=== PATIENT | male | born 1970 | race Caucasian/White ===

== ENCOUNTER 2016-10-27 09:38 | Emergency (ER) | payer SELFPAY ==
[2016-10-27 09:53] VITALS: BP 133/85
--- NOTE | 2016-10-27 10:40 | UC ---
Respiratory Complaint HPI - HPI Summary HPI Summary: Cough x 2-3 weeks, lots of yellow sputum, has been working every day, woke up with "swollen glands in throat" today, denies ST. Denies wheezing or trouble breathing, reports intermittent fevers, claims he can feel them coming on but doesn't always measure them. Had some fevers over 101, thinks last one was a week ago. Had "walking pneumonia" a few years ago and is very concerned about this. - History of Current Complaint Chief Complaint: UCRespiratory Stated Complaint: sore throat, and cough Time Seen by Provider: 10/27/16 10:29 Hx Obtained From: Patient Onset/Duration: Gradual Onset, Lasting Weeks Timing: Constant Severity Initially: Mild Severity Currently: Mild Character: Cough: Productive Aggravating Factors: Deep Breaths, Recumbent Position Alleviating Factors: Upright Position Associated Signs And Symptoms: Positive: Fever, Chills, Nasal Congestion - Allergies/Home Medications Allergies/Adverse Reactions: Allergies Allergy/AdvReac Type Severity Reaction Status Date / Time No Known Allergies Allergy Verified 10/25/13 13:38 PMH/Surg Hx/FS Hx/Imm Hx Endocrine History Of: Denies: Diabetes, Thyroid Disease Cardiovascular History Of: Denies: Cardiac Disorders, Hypertension Respiratory History Of: Denies: COPD, Asthma GI/ History Of: Denies: Ulcer - Surgical History Surgical History: None - Family History Known Family History: Positive: Other - alcoholism - Social History Occupation: Employed Full-time Alcohol Use: None Alcohol Amount: Hx of alc abuse, 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 Substance Use Type: None Smoking Status (MU): Heavy Every Day Tobacco Smoker Type: Cigarettes Amount Used/How Often: smoked cigarettes since he is 17 Length of Time of Smoking/Using Tobacco: 1 PPD - Immunization History Most Recent Influenza Vaccination: never Most Recent Tetanus Shot: UTD Review of Systems Constitutional: Fever, Chills, Fatigue Skin: Negative Eyes: Negative ENT: Other - "swollen glands" Respiratory: Cough Cardiovascular: Negative Gastrointestinal: Negative Genitourinary: Negative Motor: Negative Neurovascular: Negative Musculoskeletal: Negative Neurological: Negative Psychological: Negative All Other Systems Reviewed And Are Negative: Yes Physical Exam Triage Information Reviewed: Yes Appearance: Well-Appearing, No Pain Distress, Well-Nourished Vital Signs: Initial Vital Signs Temp 97.9 F 10/27/16 09:49 Pulse 75 10/27/16 09:49 Resp 18 10/27/16 09:49 BP 133/85 10/27/16 09:49 Pulse Ox 97 10/27/16 09:49 Vital Signs Reviewed: Yes Eye Exam: Normal Eyes: Positive: Conjunctiva Clear ENT: Positive: Hearing grossly normal, Pharyngeal erythema - mild, Nasal congestion, TMs normal. Negative: Nasal drainage, Tonsillar swelling, Tonsillar exudate Neck: Positive: Supple, Nontender, Enlarged Nodes @ - very slightly enlarged tonsillar nodes Respiratory Exam: Normal Respiratory: Positive: Chest non-tender, Lungs clear, Normal breath sounds, No respiratory distress, No accessory muscle use Cardiovascular Exam: Normal Cardiovascular: Positive: RRR, No Murmur Musculoskeletal Exam: Normal Neurological Exam: Normal Psychological Exam: Normal Skin Exam: Normal UC Diagnostic Evaluation - Laboratory O2 Sat by Pulse Oximetry: 97 Respiratory Course/Dx - Differential Dx/Diagnosis Provider Diagnoses: URI, likely viral. Elevated blood pressure secondary to discomfort Discharge - Discharge Plan Condition: Stable Disposition: HOME Prescriptions: Albuterol HFA INHALER* [Ventolin HFA Inhaler*] 1 - 2 puff INH Q4H PRN #1 mdi PRN Reason: wheeze, cough Benzonatate CAP* [Tessalon CAP*] 100 mg PO TID PRN #30 cap PRN Reason: Cough Patient Education Materials: Upper Respiratory Infection (ED) Referrals: No Primary Care Phys,NOPCP [Primary Care Provider] - Additional Instructions: Call or return if you develop increasing fever, shortness of breath, chest pain , bloody sputum, or otherwise worsen. If you have not improved at all after several days, contact your primary care physician or return here.
--- NOTE | 2016-10-27 11:02 | RAD ---
HISTORY: Cough, fever COMPARISONS: October 25, 2013 VIEWS: 2: Frontal dual-energy and lateral views of the chest. FINDINGS: CARDIOMEDIASTINAL SILHOUETTE: The cardiomediastinal silhouette is normal. ASIA: The asia are normal. PLEURA: The costophrenic angles are sharp. No pleural abnormalities are noted. LUNG PARENCHYMA: There is hyperinflation with flattening of the diaphragm and expansion of the AP diameter of the chest. ABDOMEN: The upper abdomen is clear. There is no subphrenic gas. BONES AND SOFT TISSUES: No bone or soft tissue abnormalities are noted. OTHER: None. IMPRESSION: HYPERINFLATION, CONSISTENT WITH COPD. NO ACTIVE CARDIOPULMONARY DISEASE.
== END 2016-10-27 11:19 | disposition home or self-care (01) ==
LOC: UCEAST 09:38
DX: J06.9 Acute upper respiratory infection, unspecified (principal); R03.0 Elevated blood-pressure reading, without diagnosis of hypertension; F17.210 Nicotine dependence, cigarettes, uncomplicated
CPT/HCPCS: 71020; 87651; 99212; G0463

== ENCOUNTER 2016-11-01 10:10 | Emergency (ER) | payer MEDICAID ==
--- NOTE | 2016-11-01 10:28 | UC ---
Throat Pain/Nasal [place] HPI - HPI Summary HPI Summary: complaint of nasal congestion and cough that started 2-3 weeks ago sore throat for the last 4 days coughing up phlegm- thick and green uncontrolled coughing which is worse at night fever for the last week- intermittent intermittent headaches sinus pressure in front of head and face denies N/V/D used albuterol ,tessalon without relief seen last sunday at urgent care tested negative for strep and influenza - History of Current Complaint Hx Obtained From: Patient <Ignacia Hall - Last Filed: 11/01/16 10:51> <Mario Mora - Last Filed: 11/02/16 11:12> - History of Current Complaint Stated Complaint: THROAT PAIN - Allergies/Home Medications Allergies/Adverse Reactions: Allergies Allergy/AdvReac Type Severity Reaction Status Date / Time No Known Allergies Allergy Verified 10/25/13 13:38 PMH/Surg Hx/FS Hx/Imm Hx Previously Healthy: Yes Endocrine History Of: Denies: Diabetes, Thyroid Disease Cardiovascular History Of: Denies: Cardiac Disorders, Hypertension Respiratory History Of: Denies: COPD, Asthma GI/ History Of: Denies: Ulcer - Surgical History Surgical History: None - Family History Known Family History: Positive: Other - alcoholism Negative: Cardiac Disease, Hypertension, Diabetes - Social History Occupation: Unemployed Lives: With Family Alcohol Use: None Alcohol Amount: Hx of alc abuse, 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 Substance Use Type: None Smoking Status (MU): Heavy Every Day Tobacco Smoker Type: Cigarettes Amount Used/How Often: smoked cigarettes since he is 17 Length of Time of Smoking/Using Tobacco: 1 PPD Cessation Counseling: Patient Advised to Stop - Immunization History Most Recent Influenza Vaccination: never Most Recent Tetanus Shot: UTD <Ignacia Hall - Last Filed: 11/01/16 10:51> Review of Systems Constitutional: Fever Skin: Negative Eyes: Negative ENT: Sore Throat, Ear Ache, Nasal Discharge Respiratory: Cough Cardiovascular: Negative Gastrointestinal: Negative Genitourinary: Negative Motor: Negative Neurovascular: Negative Musculoskeletal: Negative Neurological: Negative Psychological: Negative All Other Systems Reviewed And Are Negative: Yes <Ignacia Hall - Last Filed: 11/01/16 10:51> Physical Exam Triage Information Reviewed: Yes Appearance: No Pain Distress, Ill-Appearing Vital Signs Reviewed: Yes Eyes: Positive: Conjunctiva Clear ENT: Positive: Pharyngeal erythema, Nasal congestion, Nasal drainage, TM bulging - right, TM red - right, Tonsillar swelling, Tonsillar exudate, Other: - frontal and maxillary sinus tenderness Neck: Positive: No Lymphadenopathy Respiratory: Positive: Lungs clear, Normal breath sounds, No respiratory distress, No accessory muscle use Cardiovascular: Positive: RRR, No Murmur, Pulses Normal Musculoskeletal: Positive: No Edema Neurological: Positive: Alert Psychological Exam: Normal Skin Exam: Normal <Ignacia Hall - Last Filed: 11/01/16 10:51> Vital Signs: Initial Vital Signs Temp 100.1 F 11/01/16 10:25 Pulse 84 11/01/16 10:25 Resp 18 11/01/16 10:25 BP 137/69 11/01/16 10:25 Pulse Ox 98 11/01/16 10:25 <Mario Mora - Last Filed: 11/02/16 11:12> Throat Pain/Nasal Course/Dx - Course Course Of Treatment: exam completed. will treat for secondary infection- sinusitis and bronchitis/smoker. continue symptomatic treatment albuterol, tessalon , NSAIDS - Differential Dx/Diagnosis Differential Diagnosis/HQI/PQRI: Pharyngitis, Sinusitis, URI Provider Diagnoses: sinusitis, otitis media, bronchitis <Ignacia Hall - Last Filed: 11/01/16 10:51> - Course Assessment/Plan: I was available for consultation. This patient was seen by mid level provider. The patient was not presented, seen, or examined by me. WR. <Mario Mora - Last Filed: 11/02/16 11:12> Discharge <Ignacia Hall - Last Filed: 11/01/16 10:51> <Mario Mora - Last Filed: 11/02/16 11:12> - Discharge Plan Condition: Stable Disposition: HOME Prescriptions: Amoxicillin/Clavulanate TAB* [Augmentin TAB 875*] 875 mg PO BID #20 tab Ibuprofen TAB* [Motrin TAB* 800 MG] 800 mg PO TID #30 tab Patient Education Materials: Sinusitis (ED), Acute Bronchitis (ED) Referrals: No Primary Care Phys,NOPCP [Primary Care Provider] - [facility] [place]] Additional Instructions: Please take antibiotic as directed Use your albuterol inhaler every 4-6 hours when needed for wheezing, shortness of breath or uncontrolled coughing. Increase fluids and rest Take acetaminophen or ibuprofen for fever or pain Please review your discharge instructions. If your symptoms do not improve please call your primary care provider or return to urgent care.
[2016-11-01 10:29] VITALS: BP 137/69
[2016-11-01] MEDS ORDERED: Ibuprofen TAB* 400 MG PO ONE (10:50)
== END 2016-11-01 11:02 | disposition home or self-care (01) ==
LOC: UCEAST 10:10
DX: J32.9 Chronic sinusitis, unspecified (principal); H66.91 Otitis media, unspecified, right ear; J40 Bronchitis, not specified as acute or chronic; F17.210 Nicotine dependence, cigarettes, uncomplicated
CPT/HCPCS: 99212; A9270-GY; G0463

== ENCOUNTER 2018-02-24 09:32 | Emergency (ER) | payer MEDICAID ==
[2018-02-24 10:01] VITALS: BP 140/92
[2018-02-24] MEDS ORDERED: Albuterol/Ipratropium NEB.SOL* Albuterol 2.5 MG/Ipratropium 0.5 MG 3 ML INH ONE (10:54)
--- NOTE | 2018-02-24 11:00 | UC ---
Respiratory Complaint HPI - HPI Summary HPI Summary: Patient presents with complaints of cough, chest congestion, audible wheezing and sputum production, with sore throat. He states he has been having coughing fits and cannot get them to stop. He also notes feeling "run down". He states he had similar symptoms a few years ago when he had walking pneumonia. He denies fever, chills, chest pain, orthopnea, edema, palpitations. He is able to work and compete he [employer]. - History of Current Complaint Chief Complaint: UCRespiratory Stated Complaint: CONGESTED,COUGH Time Seen by Provider: 02/24/18 10:47 Hx Obtained From: Patient Onset/Duration: Gradual Onset, Lasting Days Pain Intensity: 0 Character: Cough: Productive Aggravating Factors: Exertion, Deep Breaths Alleviating Factors: Nothing Associated Signs And Symptoms: Positive: URI, Nasal Congestion - Risk Factors Pulmonary Embolism Risk Factors: Negative Cardiac Risk Factors: Smoking Pseudomonas Risk Factors: Negative Tuberculosis Risk Factors: Negative - Allergies/Home Medications Allergies/Adverse Reactions: Allergies Allergy/AdvReac Type Severity Reaction Status Date / Time No Known Allergies Allergy Verified 02/24/18 10:01 PMH/Surg Hx/FS Hx/Imm Hx Previously Healthy: Yes - Surgical History Surgical History: None - Family History Known Family History: Positive: Other - alcoholism, maternal: anuersym ( ) Negative: Cardiac Disease, Hypertension, Diabetes - Social History Occupation: Employed Full-time Lives: Alone Alcohol Use: None Alcohol Amount: Hx of alc abuse, 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 Substance Use Type: None Smoking Status (MU): Heavy Every Day Tobacco Smoker Type: Cigarettes Amount Used/How Often: smoked cigarettes since he is 17 Length of Time of Smoking/Using Tobacco: 1 PPD - Immunization History Most Recent Influenza Vaccination: never Most Recent Tetanus Shot: UTD Review of Systems Constitutional: Fatigue Skin: Negative Eyes: Negative ENT: Sore Throat Respiratory: Cough Cardiovascular: Negative Gastrointestinal: Negative Genitourinary: Negative Motor: Negative Neurovascular: Negative Musculoskeletal: Negative Neurological: Negative Psychological: Negative Is Patient Immunocompromised?: No All Other Systems Reviewed And Are Negative: Yes Physical Exam Triage Information Reviewed: Yes Appearance: Well-Appearing Vital Signs: Initial Vital Signs Temp 98.8 F 02/24/18 09:58 Pulse 80 02/24/18 09:58 Resp 24 02/24/18 09:58 BP 140/92 02/24/18 09:58 Pulse Ox 95 02/24/18 09:58 Vital Signs Reviewed: Yes Eye Exam: Normal ENT: Positive: Pharyngeal erythema Neck exam: Normal Neck: Positive: Supple Respiratory: Positive: Rhonchi, Wheezing, Expiration, Inspiration Cardiovascular Exam: Normal Abdominal Exam: Normal Musculoskeletal Exam: Normal Neurological Exam: Normal Skin Exam: Normal UC Diagnostic Evaluation - Laboratory O2 Sat by Pulse Oximetry: 95 Respiratory Course/Dx - Course Course Of Treatment: Patients chest xray was read as negative for pneumonia. She received a duoneb treatement in the clinic and felt better. He as treated for acute bronchitis with doxycline 100 mg twice daily for 10 days, prednisone 20 mg twice daily for 5 days, and albuterol hfa 1-2 inhalation every 4-6 hours as needed. He was told to return if he was not better in 5 days, sooner if he gets worse. - Differential Dx/Diagnosis Differential Diagnosis/HQI/PQRI: Bronchitis Provider Diagnoses: bronchitis Discharge - Sign-Out/Discharge Documenting (check all that apply): Patient Departure - Discharge Plan Condition: Stable Disposition: HOME Prescriptions: Albuterol HFA INHALER* [Ventolin HFA Inhaler*] 1 puff INH Q4H PRN #1 mdi PRN Reason: Wheezing DOXYcycline CAP(*) [DOXYcycline 100MG CAP(*)] 100 mg PO BID #20 cap predniSONE TAB* [Deltasone 20 MG TAB*] 20 mg PO BID #10 tab Patient Education Materials: Acute Bronchitis (ED) Referrals: No Primary Care Phys,NOPCP [Primary Care Provider] - Additional Instructions: If your symptoms do not improve within one week you will need to follow up with your PCP or come back to the walk-in clinic. - Billing Disposition and Condition Condition: STABLE Disposition: Home
--- NOTE | 2018-02-24 11:26 | RAD ---
INDICATION: Cough and congestion x3 days COMPARISON: Most recent comparison chest x-rays dated October 27, 2016 TECHNIQUE: PA and lateral views of the chest were obtained. FINDINGS: The heart and mediastinum are normal in size and contour. The lungs are grossly clear. There is no evidence of large pleural effusion. Visualized bones are normal for the patient's age. There is no radiographic evidence of free air beneath the diaphragm IMPRESSION: No radiographic evidence of acute cardiopulmonary disease.
== END 2018-02-24 11:38 | disposition home or self-care (01) ==
LOC: UCEAST 09:32
DX: J40 Bronchitis, not specified as acute or chronic (principal); F17.210 Nicotine dependence, cigarettes, uncomplicated
CPT/HCPCS: 71046; 99212; A9270-GY; G0463

== ENCOUNTER 2019-01-08 10:53 | Emergency (ER) | payer OTHER ==
[2019-01-08 11:06] VITALS: BP 115/74
--- NOTE | 2019-01-08 11:51 | UC ---
Respiratory Complaint HPI - HPI Summary HPI Summary: 48 yo male presents with sinus pain/pressure/congestion, post nasal drip, and dry cough for the last 4-5 days. He has been taking vicks and theraflu otc with no relief. He is stills smoking daily. Denies fever, chills, sore throat, SOB, chest pain. - History of Current Complaint Chief Complaint: UCRespiratory Stated Complaint: SINIS ISSUES Time Seen by Provider: 01/08/19 11:51 Hx Obtained From: Patient Onset/Duration: Gradual Onset Severity Initially: Mild Severity Currently: Mild Pain Intensity: 3 Pain Scale Used: 0-10 Numeric Character: Cough: Nonproductive - Allergies/Home Medications Allergies/Adverse Reactions: Allergies Allergy/AdvReac Type Severity Reaction Status Date / Time No Known Allergies Allergy Verified 01/08/19 11:06 PMH/Surg Hx/FS Hx/Imm Hx - Additional Past Medical History Additional PMH: None - Surgical History Surgical History: None - Family History Known Family History: Positive: Other - alcoholism, maternal: annorasym ( ) Negative: Cardiac Disease, Hypertension, Diabetes - Social History Occupation: Employed Full-time Lives: With Family Alcohol Use: Occasionally Alcohol Amount: Hx of alc abuse, 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 Substance Use Type: None Smoking Status (MU): Heavy Every Day Tobacco Smoker Type: Cigarettes Amount Used/How Often: smoked cigarettes since he is 17 Length of Time of Smoking/Using Tobacco: 1 PPD - Immunization History Most Recent Influenza Vaccination: never Most Recent Tetanus Shot: UTD Review of Systems All Other Systems Reviewed And Are Negative: Yes Constitutional: Positive: Negative Skin: Positive: Negative Eyes: Positive: Negative ENT: Positive: Nasal Discharge, Sinus Congestion, Sinus Pain/Tenderness Respiratory: Positive: Cough Cardiovascular: Positive: Negative Gastrointestinal: Positive: Negative Neurovascular: Positive: Negative Neurological: Positive: Negative Psychological: Positive: Negative Physical Exam - Summary Physical Exam Summary: GENERAL: NAD. WDWN. No pain distress. SKIN: No rashes, sores, lesions, or open wounds. HEENT: Head: AT/NC Eyes: EOM intact. Conjunctiva clear without inflammation or discharge. Ears: Hearing grossly normal. TMs intact, no bulging, erythema, or edema. Nose: Nasal mucosa mildly swollen and erythematous with yellow/ clear discharge. TTP maxillary and frontal sinus. Positive post nasal drip Throat: Posterior oropharynx without exudates, erythema, or tonsillar enlargement. Uvula midline. NECK: Supple. Nontender. No lymphadenopathy. CHEST: CTAB. No r/r/w. No accessory muscle use. Breathing comfortably and in no distress. CV: RRR. Without m/r/g. Pulses intact. NEURO: Alert. PSYCH: Age appropriate behavior. Triage Information Reviewed: Yes Vital Signs: Initial Vital Signs Temp 98.9 F 01/08/19 11:03 Pulse 69 01/08/19 11:03 Resp 16 01/08/19 11:03 BP 115/74 01/08/19 11:03 Pulse Ox 99 01/08/19 11:03 Vital Signs Reviewed: Yes Respiratory Course/Dx - Course Course Of Treatment: Sinusitis - Differential Dx/Diagnosis Provider Diagnosis: Sinusitis Discharge - Sign-Out/Discharge Documenting (check all that apply): Patient Departure All imaging exams completed and their final reports reviewed: No Studies - Discharge Plan Condition: Stable Disposition: HOME Prescriptions: Azithromycin TAB* [Zithromax TAB (Z-ANAHI) 250 mg #6 tabs] 2 tab PO .TODAY, THEN 1 DAILY #1 anahi Benzonatate CAP* [Tessalon 100 MG CAP*] 100 mg PO TID PRN #21 cap PRN Reason: Cough guaiFENesin ER TAB [Mucinex*] 600 mg PO BID #14 tab.er Patient Education Materials: Sinusitis (ED) Referrals: No Primary Care Phys,NOPCP [Primary Care Provider] - Additional Instructions: If you develop a fever, shortness of breath, chest pain, new or worsening symptoms - please call your PCP or go to the ED immediately. - Billing Disposition and Condition Condition: STABLE Disposition: Home
== END 2019-01-08 12:03 | disposition home or self-care (01) ==
LOC: UCEAST 10:53
DX: J32.9 Chronic sinusitis, unspecified (principal); F17.210 Nicotine dependence, cigarettes, uncomplicated
CPT/HCPCS: 99212; G0463

== ENCOUNTER 2019-06-17 13:12 | Emergency (ER) | payer OTHER ==
[2019-06-17 13:20] VITALS: BP 145/85
--- NOTE | 2019-06-17 15:44 | UC ---
Shortness of Breath HPI - HPI Summary HPI Summary: 49 year old male, + Tob history, current smoker, presents with shortness of breath, cough- both productive/ non-productive. + fever, tactile. no lightheadedness, dizziness. 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 States similar symptoms every year, but this year continued working with symptoms increasing to where he is very tired. - History of Current Complaint Chief Complaint: UCRespiratory Stated Complaint: CHEST CONGESTION Time Seen by Provider: 06/17/19 14:48 Hx Obtained From: Patient Onset/Duration: Sudden Onset Current Severity: Moderate Dyspnea At: Rest, Exertion, Orthopena Aggravating Factors: Deep Breaths Associated Signs & Symptoms: Positive: Cough (Productive), Cough (Nonproductive) , Nasal Congestion. Negative: Wheezing, Chest Pain w/Cough, Chest Pain Unrelated to Cough, Edema - Allergy/Home Medications Allergies/Adverse Reactions: Allergies Allergy/AdvReac Type Severity Reaction Status Date / Time No Known Allergies Allergy Verified 06/17/19 13:21 PMH/Surg Hx/FS Hx/Imm Hx Previously Healthy: No - yearly bronchitis Respiratory History: COPD, Bronchitis - Surgical History Surgical History: None - Family History Known Family History: Positive: Other - alcoholism, maternal: stefani ( ), Non-Contributory Negative: Cardiac Disease, Hypertension, Diabetes - Social History Alcohol Use: Occasionally Alcohol Amount: Hx of alc abuse, 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 Negative: Ear Ache Respiratory: Positive: Cough Cardiovascular: Negative: Palpitations, Chest Pain Is Patient Immunocompromised?: No Physical Exam Triage Information Reviewed: Yes Appearance: No Pain Distress, Well-Nourished, Ill-Appearing - moderate Vital Signs: Initial Vital Signs Temp 98 F 06/17/19 13:17 Pulse 90 06/17/19 13:17 Resp 17 06/17/19 13:17 BP 145/85 06/17/19 13:17 Pulse Ox 100 06/17/19 13:17 Vital Signs Reviewed: Yes Eyes: Positive: Conjunctiva Clear ENT: Positive: Pharynx normal, Nasal congestion, TMs normal - cerumen impaction on L ear, irrigated with mild success, patient had to leave before, Sinus tenderness, Uvula midline. Negative: TM bulging, TM dull, TM red, Tonsillar swelling, Tonsillar exudate Neck: Positive: Supple, Nontender, No Lymphadenopathy. Negative: Nuchal Rigidity, Enlarged Nodes @ Respiratory: Positive: Chest non-tender, No respiratory distress, No accessory muscle use, Wheezing - b/l diffuse. Negative: Respiratory distress, Decreased breath sounds Cardiovascular: Positive: RRR, No Murmur Musculoskeletal Exam: Normal Psychological Exam: Normal Shortness of Breath Dx - Course Course Of Treatment: Acute bronchitis in active smoker with h/o fever - Prednisone taper to help decrease inflammation, cough, help with breathing - Antibiotics as prescribed to prevent infection - Increase fluid intake - Cerumen Impaction- Debrox over the counter medication daily, run water in ears in shower, do not use Q-tips - Go to ER with worsening shortness of breath, fever > 102, increased pain, difficulty swallowing - Work note given - Differential Dx/Diagnosis Differential Diagnosis/HQI/PQRI: Bronchitis, Pneumonia Provider Diagnosis: Acute bronchitis Discharge ED - Sign-Out/Discharge Documenting (check all that apply): Patient Departure All imaging exams completed and their final reports reviewed: No Studies - Discharge Plan Condition: Good Disposition: HOME Prescriptions: Amoxicillin/Clavulanate TAB* [Augmentin TAB 875*] 875 mg PO BID #14 tab Ipratropium 0.5MG/2.5ML NEB* [Atrovent 0.5 MG NEB.EMMETT*] 0.5 mg INH Q4H PRN #30 meb.soln PRN Reason: Sob/Wheezing predniSONE TAB* [Deltasone 10 MG TAB*] 10 mg PO .SEE TAPE #25 tab Patient Education Materials: Cerumen Impaction (ED), Acute Bronchitis (ED), Bronchospasm (ED) Forms: *Work Release Referrals: No Primary Care Phys,NOPCP [Primary Care Provider] - [facility] [Outside] Additional Instructions: - Prednisone taper to help decrease inflammation, cough, help with breathing - Antibiotics as prescribed to prevent infection - Increase fluid intake - Cerumen Impaction- Debrox over the counter medication daily, run water in ears in shower, do not use Q-tips - Go to ER with worsening shortness of breath, fever > 102, increased pain, difficulty swallowing - Work note given - Billing Disposition and Condition Condition: GOOD Disposition: Home
== END 2019-06-17 15:52 | disposition home or self-care (01) ==
LOC: UCEAST 13:12
DX: J20.9 Acute bronchitis, unspecified (principal); J44.0 Chronic obstructive pulmonary disease with (acute) lower respiratory infection; F17.210 Nicotine dependence, cigarettes, uncomplicated
CPT/HCPCS: 99213; G0463

== ENCOUNTER 2019-08-07 11:43 | Emergency (ER) | payer OTHER ==
--- NOTE | 2019-08-07 12:11 | ED ---
Upper Extremity Pain - HPI Summary HPI Summary: The patient is a 49 y/o M presenting to [facility] accompanied by with a chief complaint of pain and swelling in the right hand onset this morning. He reports that he hit the medial wrist on a metal object at work a few days ago and had immediate pain, but the pain subsided over time. He woke up this morning with more pain, swelling, erythema, and a mushy feeling in the hand. He has not used any medications for pain, but he has used a wrist splint last night. He states that the pain worsened when he attempted to lift a box at work. Aching pain is currently rated 6/10 in severity. He endorses numbness in the fingers of the right hand, but he states this happens intermittently chronically. PMHx: carpal tunnel. Heavy every day smoker, occasional EtOH, no substance use. Medications reviewed. Allergies noted. - History of Current Complaint Chief Complaint: EDExtremityUpper Stated Complaint: RIGHT HAND SWELLING PER PT Time Seen by Provider: 08/07/19 11:57 Hx Obtained From: Patient Mechanism Of Injury: Other - hit hand on metal Onset/Duration: Started Days Ago, Still Present, Worse Since - this morning Timing: Lasting Hours Severity Initially: Mild Severity Currently: Moderate Pain Location: Wrist - right medial, Hand - right Character: Aching Aggravating Factor(s): Movement Alleviating Factor(s): Rest Associated Signs & Symptoms: Positive: Swelling, Redness, Numbness/Tingling - fingers of right hand - Allergies/Home Medications Allergies/Adverse Reactions: Allergies Allergy/AdvReac Type Severity Reaction Status Date / Time No Known Allergies Allergy Verified 08/07/19 11:50 Home Medications: Home Medications NK [No Home Medications Reported] 08/07/19 [History Confirmed 08/07/19] PMH/Surg Hx/FS Hx/Imm Hx Endocrine/Hematology History: Denies: Hx Diabetes, Hx Thyroid Disease Cardiovascular History: Denies: Hx Hypertension Respiratory History: Denies: Hx Asthma, Hx Chronic Obstructive Pulmonary Disease (COPD) GI History: Denies: Hx Ulcer Musculoskeletal History: Reports: Other Musculoskeletal History - carpal tunnel - Surgical History Surgical History: None Surgery Procedure, Year, and Place: none - Immunization History Date of Tetanus Vaccine: last 10 yrs Infectious Disease History: No Infectious Disease History: Denies: Hx Hepatitis, Hx Human Immunodeficiency Virus (HIV), History Other Infectious Disease, Traveled Outside the [place] in Last 30 Days - Family History Known Family History: Positive: Other - alcoholism, maternal: rosendosym ( ) Negative: Cardiac Disease, Hypertension, Diabetes - Social History Alcohol Use: Occasionally Alcohol Amount: Hx of alc abuse, 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 Skin: The skin is warm and dry, and skin color reflects adequate perfusion. HEENT: The head is normocephalic and atraumatic. The pupils are equal and reactive. The conjunctivae are clear and without drainage. Nares are patent and without drainage. Mouth reveals moist mucous membranes, and the throat is without erythema and exudate. The external ears are intact. The ear canals are patent and without drainage. The tympanic membranes are intact. Neck: The neck is supple with full range of motion and non-tender. There are no carotid bruits. There is no neck vein distension. Respiratory: Chest is non-tender. Lungs are clear to auscultation and breath sounds are symmetrical and equal. Cardiovascular: Heart is regular rate and rhythm. There is no murmur or rub auscultated. There is no peripheral edema and pulses are symmetrical and equal. Abdomen: The abdomen is soft and non-tender. There are normal bowel sounds heard in all four quadrants and there is no organomegaly palpated. Musculoskeletal: There is no back tenderness noted. The right hand is diffusely and mildly swollen. There is tenderness in the medial rest. Extremities are otherwise non-tender with full range of motion. There is good capillary refill. There is no peripheral edema or calf tenderness elicited. Neurological: Patient is alert and oriented to person, place and time. The patient has symmetrical motor strength in all four extremities. Cranial nerves are grossly intact. Deep tendon reflexes are symmetrical and equal in all four extremities. Psychiatric: The patient has an appropriate affect and does not exhibit any anxiety or depression. Triage Information Reviewed: Yes Vital Signs On Initial Exam: Initial Vitals Temp Pulse Resp BP Pulse Ox 97.3 F 90 16 133/90 96 08/07/19 11:47 08/07/19 11:47 08/07/19 11:47 08/07/19 11:47 08/07/19 11:47 Vital Signs Reviewed: Yes Procedures - Sedation Patient Received Moderate/Deep Sedation with Procedure: No Diagnostics - Vital Signs Vital Signs Temp Pulse Resp BP Pulse Ox 08/07/19 11:47 97.3 F 90 16 133/90 96 - Laboratory Lab Statement: Any lab studies that have been ordered have been reviewed, and results considered in the medical decision making process. - Radiology Right Wrist XR Radiology Interpretation Completed By: Radiologist Summary of Radiographic Findings: Impression: 1. Volar intercalated segmental instability. 2. Scapholunate diastases which may be congenital or reflect scapholunate ligament tear. 3. Negative for fracture. ED physician has reviewed this report. Re-Evaluation - Re-Evaluation First Eval Re-Evaluation Time: 13:20 Comment: We discussed results and plan for discharge. Course/Dx - Course Course Of Treatment: Mr. Angel banged his wrist. This morning had some diffuse swelling. I think this is related to the contusion and wearing his carpal tunnel splint during the night. I recommend cockup splint for some rest and follow-up with his PCP. - Diagnoses Provider Diagnoses: Contusion of wrist, right Discharge ED - Sign-Out/Discharge Documenting (check all that apply): Patient Departure - Patient will be discharged home. - Discharge Plan Condition: Stable Disposition: HOME Patient Education Materials: Wrist Injury (ED) Referrals: [facility] [Outside] - 3 Days Additional Instructions: Elevate your wrist and use your splint. Follow up with your primary care provider in 2-3 days. Return to the emergency department for any new or worsening symptoms. - Billing Disposition and Condition Condition: STABLE Disposition: Home - Attestation Statements Document Initiated by Scribe: Yes Documenting Scribe: Marcy Yepez Provider For Whom Scribe is Documenting (Include Credential): Dr. Augusto Turcios MD Scribe Attestation: IMarcy scribed for Dr. Augusto Turcios MD on 08/07/19 at 1957. Scribe Documentation Reviewed: Yes Provider Attestation: The documentation as recorded by the scribe, Marcy Yepez accurately reflects the service I personally performed and the decisions made by me, Dr. Augusto Turcios MD Status of Scribe Document: Viewed
[2019-08-07 13:34] VITALS: BP 128/74
== END 2019-08-07 13:36 | disposition home or self-care (01) ==
LOC: ED 11:43
DX: S60.211A Contusion of right wrist, initial encounter (principal); W22.8XXA Striking against or struck by other objects, initial encounter; Y92.9 Unspecified place or not applicable; F17.210 Nicotine dependence, cigarettes, uncomplicated
CPT/HCPCS: 99282

== ENCOUNTER 2019-08-26 11:10 | Emergency (ER) | payer OTHER ==
[2019-08-26] MEDS ORDERED: Lidocaine 2% VISCOUS* 15 ML UDC PO ONE (13:17)
[2019-08-26] MEDS ORDERED: Al Hydrox/Mg Hydrox/Simet LIQ* 30 ML UDC PO ONE (13:17)
--- NOTE | 2019-08-26 13:23 | UC ---
Abdominal Pain Male HPI - HPI Summary HPI Summary: The patient is a 49-year-old male with the onset of abdominal pain and diarrhea 2-3 days ago. He states he has had abdominal pain that waxes and wanes but does not go away completely. He says it constantly seems to be changing position. At the onset of symptoms he had 6-8 episodes of diarrhea. The diarrhea persists but now is 2-3 episodes per day. He denies any nausea or vomiting. He does not have an appetite. He states his urine output is decreased due to him not feeling like eating or drinking. He denies any fever or chills. He denies any cough or shortness of breath. He states that sometimes she does get pressure and pain substernally. In fact he is having some substernal pain as we speak. Sometimes the pain is worse if he fully straighten. He denies any increased pain with walking or jumping. He has not had any UTI symptoms. He has never had surgery on his abdomen. - History of Current Complaint Chief Complaint: UCAbdominalPain Stated Complaint: ABDOMINAL PAIN Time Seen by Provider: 08/26/19 12:31 Hx Obtained From: Patient Onset/Duration: Gradual Onset, Lasting Days Timing: Constant Severity Initially: Mild Severity Currently: Moderate Pain Intensity: 5 Pain Scale Used: 0-10 Numeric Location: Diffuse, Other - area of maximum intensity Radiates: No Character: Unable to describe Aggravating Factor(s): Nothing Alleviating Factor(s): Nothing Associated Signs And Symptoms: Positive: Chest Pain - chest pressure, Decreased Appetite, Diarrhea. Negative: Diaphoresis, Fever, Cough, Dizzy, Back Pain, Constipation, Blood in Stool, Urinary Symptoms, Nausea, Vomiting, Penile Discharge - Allergies/Home Medications Allergies/Adverse Reactions: Allergies Allergy/AdvReac Type Severity Reaction Status Date / Time No Known Allergies Allergy Verified 08/26/19 11:18 PMH/Surg Hx/FS Hx/Imm Hx Previously Healthy: Yes - Surgical History Surgical History: None Surgery Procedure, Year, and Place: none - Family History Known Family History: Positive: Cardiac Disease, Hypertension, Other - alcoholism, maternal: anuersym (), Non-Contributory Negative: Diabetes - Social History Alcohol Use: Occasionally Alcohol Amount: Hx of alc abuse, 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 Substance Use Type: None Smoking Status (MU): Heavy Every Day Tobacco Smoker Type: Cigarettes Amount Used/How Often: smoked cigarettes since he is 17 Length of Time of Smoking/Using Tobacco: 1 PPD Have You Smoked in the Last Year: Yes - Immunization History Most Recent Influenza Vaccination: never Most Recent Tetanus Shot: UTD Review of Systems All Other Systems Reviewed And Are Negative: Yes Constitutional: Positive: Negative Skin: Positive: Negative Eyes: Positive: Negative ENT: Positive: Negative Respiratory: Positive: Negative Cardiovascular: Positive: Negative Gastrointestinal: Positive: Abdominal Pain, Diarrhea Genitourinary: Positive: Negative Motor: Positive: Negative Neurovascular: Positive: Negative Musculoskeletal: Positive: Negative Neurological: Positive: Negative Psychological: Positive: Negative Physical Exam Triage Information Reviewed: Yes Appearance: Well-Appearing, No Pain Distress, Well-Nourished Vital Signs: Initial Vital Signs Temp 97.8 F 08/26/19 11:14 Pulse 84 08/26/19 11:14 Resp 18 08/26/19 11:14 BP 128/95 08/26/19 11:14 Pulse Ox 100 08/26/19 11:14 Vital Signs Reviewed: Yes Eyes: Positive: Conjunctiva Clear ENT: Positive: Hearing grossly normal. Negative: Nasal congestion, Nasal drainage, Trismus, Muffled voice, Hoarse voice Neck: Positive: Supple, Nontender, No Lymphadenopathy Respiratory: Positive: Lungs clear, Normal breath sounds, No respiratory distress Cardiovascular: Positive: RRR, No Murmur Abdomen Description: Positive: No Organomegaly, Soft, Other: - initial exam no RLQ tenderness/ able to jump up and down, neg psoas or abturator. Negative: Nontender, CVA Tenderness (R), CVA Tenderness (L), Distended Bowel Sounds: Positive: Present Musculoskeletal: Positive: ROM Intact, No Edema Neurological: Positive: Alert Psychological Exam: Normal Skin Exam: Normal Diagnostics - Laboratory Lab Results: UA- negative - Radiology No standard instances Radiology Interpretation Completed By: Radiologist Summary of Radiographic Findings: GB normal - EKG Cardiac Rate: NL Cardiac Rhythm: Sinus: Normal Ectopy: None ST Segment: Normal Re-Evaluation - Re-Evaluation First Eval Re-Evaluation Time: 13:18 Change: Unchanged - now with RLQ, LLQ and RUQ tenderness and pain. I advised patient that I thought the most prudent thing to do would to be to go to the ER for blood work and imaging. He vehemently refused. Second Eval Re-Evaluation Time: 14:30 Change: Unchanged - Still refuses transfer Abd Pain Male Course/Dx - Course Course Of Treatment: Discussed at length the need to go to the ER for further evaluation I explained that he may have something that needs to be addressed surgically in an urgent manner I explained a delay in diagnosis of the cause of his symptoms may result in problems including prolong hospitalization/ He says he will go to the ER if things worsen - Differential Dx/Clinical Impression Provider Diagnosis: Abdominal pain, diffuse Discharge ED - Sign-Out/Discharge Documenting (check all that apply): Patient Departure All imaging exams completed and their final reports reviewed: Yes - Discharge Plan Condition: Guarded Disposition: HOME Prescriptions: Famotidine TAB* [Pepcid 20 MG TAB*] 20 mg PO DAILY #14 tab Patient Education Materials: Acute Abdominal Pain (ED) Forms: *Work Release Additional Instructions: As discussed I think you should go directly to the ER for evaluation of your pain U/S of gallbladder normal EKG normal Urine normal Despite no fever and normal vital signs you still could have a serious and potentially life threatening problem causing your abdominal pain You may have a problem that needs surgery (like appendicitis) I think you should get this worked up further with blood work and imaging (that we can not do here) Certainly you need to go to the ER for increased pain/fever/vomiting If you decide not to go to the ER it could result in worsening of your condition Please go to the ER if not improved in a few hours should you not go there directly from here - Billing Disposition and Condition Condition: GUARDED Disposition: Home
[2019-08-26 13:40] VITALS: BP 147/92
== END 2019-08-26 14:48 | disposition home or self-care (01) ==
LOC: UCEAST 11:10
DX: R10.84 Generalized abdominal pain (principal); R19.7 Diarrhea, unspecified; F17.210 Nicotine dependence, cigarettes, uncomplicated
CPT/HCPCS: 76705; 81003; 93005; 99212; A9270-GY; G0463

== ENCOUNTER 2019-08-27 01:04 | Emergency (ER) | payer OTHER ==
[2019-08-27] MEDS ORDERED: NS 0.9% 1000 ML** 1,000 ML IV ONE ×2 (01:27→04:59)
[2019-08-27] MEDS ORDERED: Ondansetron INJ* 2 MG/ML VIAL IV ONE (01:27)
[2019-08-27] MEDS ORDERED: fentaNYL* 50 MCG/ML 2 ML VIAL (100 MCG VIAL) ONE (01:38)
--- NOTE | 2019-08-27 01:41 | ED ---
Abdominal Pain/Male - HPI Summary HPI Summary: 49 year old male presents to the ED with a chief complaint of abdominal pain starting 08/25/19. The pain is localized in his RLQ. Patient presented to Urgent Care earlier today and was told to come to [facility]. It was alleviated using a heat pack while lying down. He reports diarrhea and nausea but denies vomiting and fever. He has been unable to urinate for several days. Patient smokes tobacco. He does not drink alcohol or smoke marijuana. No pertinent family history. - History of Current Complaint Chief Complaint: EDAbdPain Stated Complaint: ABD PAIN PER PT Time Seen by Provider: 08/27/19 01:24 Hx Obtained From: Patient Onset/Duration: Gradual Onset, Lasting Days, Still Present Timing: Constant Severity Initially: Moderate Severity Currently: Severe Pain Intensity: 10 Pain Scale Used: 0-10 Numeric Location: Diffuse, Discrete At: RLQ Character: Sharp Aggravating Factor(s): Nothing Alleviating Factor(s): Position Associated Signs And Symptoms: Positive: Diarrhea. Negative: Fever, Vomiting - Allergies/Home Medications Allergies/Adverse Reactions: Allergies Allergy/AdvReac Type Severity Reaction Status Date / Time No Known Allergies Allergy Verified 08/29/19 08:47 PMH/Surg Hx/FS Hx/Imm Hx Endocrine/Hematology History: Denies: Hx Diabetes, Hx Thyroid Disease Cardiovascular History: Denies: Hx Hypertension Respiratory History: Denies: Hx Asthma, Hx Chronic Obstructive Pulmonary Disease (COPD) GI History: Denies: Hx Ulcer Musculoskeletal History: Reports: Other Musculoskeletal History - carpal tunnel - Surgical History Surgery Procedure, Year, and Place: none - Immunization History Date of Tetanus Vaccine: last 10 yrs Infectious Disease History: No Infectious Disease History: Denies: Hx Hepatitis, Hx Human Immunodeficiency Virus (HIV), History Other Infectious Disease, Traveled Outside the [place] in Last 30 Days - Family History Known Family History: Positive: Cardiac Disease, Hypertension, Other - alcoholism, maternal: anuersym (), Non-Contributory Negative: Diabetes - Social History Alcohol Use: Daily Alcohol Amount: 1-2 beers daily Substance Use Type: Reports: None Hx Tobacco Use: Yes Smoking Status (MU): Heavy Every Day Tobacco Smoker Type: Cigarettes Amount Used/How Often: smoked cigarettes since he is 17 Length of Time of Smoking/Using Tobacco: 1 PPD Have You Smoked in the Last Year: Yes - Additional Comments History Additional Comments: PMHx: Carpal tunnel Review of Systems - ROS Summary Review of Systems Summary: Home Medications Medication Instructions Recorded Confirmed Type Famotidine TAB* [Pepcid 20 MG TAB*] 20 mg PO DAILY #14 tab 08/26/19 08/27/19 Rx Negative: Fever Positive: Abdominal Pain, Diarrhea, Nausea. Negative: Vomiting All Other Systems Reviewed And Are Negative: Yes Physical Exam - Summary Physical Exam Summary: General: Well-developed, Well-nourished male. Moderate discomfort at rest. HEENT: Normocephalic, Atraumatic. Eyes: Conjuctiva normal, PERRL. Ears: TMs within normal limits. Nares: (-) discharge, (-) erythema. Oropharynx: Clear, mucous membranes moist, (-) exudates. Neck: Soft, FROM, (-) lymphadenopathy, (-) thyromegaly, (-) JVD. Cardiovascular: Normal sinus rhythm, (-) murmur. Lungs: Clear to auscultation bilaterally (-) wheezes, (-) rales, (-) rhonchi. Abdomen: Firm, mild tenderness throughout, moderate tenderness in RLQ. Positive rebound. Positive guarding. Non-distended, (-) organomegaly, normal bowel sounds. Back: (-) CVA tenderness Extremities: No edema. Skin: Warm, dry, (-) rash. Neuro: Alert and oriented x3, no focal deficits. Psychiatric: Mood normal, affect normal. Triage Information Reviewed: Yes Vital Signs On Initial Exam: Initial Vitals Temp Pulse Resp BP Pulse Ox 96.2 F 73 20 119/85 99 08/27/19 01:05 08/27/19 01:05 08/27/19 01:05 08/27/19 01:05 08/27/19 01:05 Vital Signs Reviewed: Yes Procedures - Sedation Patient Received Moderate/Deep Sedation with Procedure: No Diagnostics - Vital Signs Vital Signs Temp Pulse Resp BP Pulse Ox 08/27/19 01:13 68 111/84 99 08/27/19 01:12 66 100 08/27/19 01:05 96.2 F 73 20 119/85 99 - Laboratory Result Diagrams: 08/27/19 01:49 08/27/19 01:49 Lab Statement: Any lab studies that have been ordered have been reviewed, and results considered in the medical decision making process. - CT APCT CT Interpretation Completed By: Radiologist Summary of CT Findings: Normal appendix. No acute finding. An ED physician has reviewed this report. Re-Evaluation - Re-Evaluation First Eval Re-Evaluation Time: 04:58 Change: Worse Comment: Patient says that pain has increased. Discussed with patient that his inability to urinate could be from a possible kidney stone. Abdominal Pain Male Course/Dx - Course Course Of Treatment: 49-year-old male presents with abdominal pain. Was seen at urgent care earlier today. Patient states he's had pain for a couple days. Has had diarrhea. Urinating less. Also taking less than. No high fevers or chills. Pain has worsened. No vomiting. On physical exam patient has moderate tenderness in the right lower quadrant. Workup demonstrates slightly elevated white count. No fever. CT scan demonstrates a normal appendix and no acute abnormalities. Patient's pain controlled with fentanyl. Discharged to home on clear liquids. Differential diagnosis discussed. Off work 2 days. Follow-up with PCP. Follow-up sooner for any worsening symptoms. - Diagnoses Differential Diagnosis/HQI/PQRI: Appendicitis, Bowel Obstruction, Diverticulitis , Ischemic Bowel, Renal Colic, Testicular Torsion, Urinary Tract Infection Provider Diagnoses: RLQ abdominal pain, Diarrhea, Tobacco use Discharge ED - Sign-Out/Discharge Documenting (check all that apply): Patient Departure - discharge home - Discharge Plan Condition: Stable Disposition: HOME Patient Education Materials: How to Stop Smoking (ED), Acute Diarrhea (ED), Abdominal Pain (ED) Forms: *Work Release Referrals: [facility] [Outside] Additional Instructions: [facility] up [facility] in 2-3 days. Return to the Emergency Department if you experience new or worsened symptoms. - Billing Disposition and Condition Condition: STABLE Disposition: Home - Attestation Statements Document Initiated by Scribe: Yes Documenting Scribe: Mayur Sanford Provider For Whom Alia is Documenting (Include Credential): Amaya Mancera MD Scribe Attestation: Mayur Garcia, scribed for Amaya Mancera MD on 08/29/19 at 2010. Scribe Documentation Reviewed: Yes Provider Attestation: The documentation as recorded by the scribMayur benites accurately reflects the service I personally performed and the decisions made by me, Amaya Mancera MD Status of Scribe Document: Viewed
[2019-08-27] MEDS ORDERED: fentaNYL* 50 MCG/ML 2 ML VIAL (100 MCG VIAL) IV SLOW PU ONE ×3 (01:42→04:57)
[2019-08-27 02:07] LABS: ABS Basophils 0.1 10^3/ul (0-0.2); ABS Eosinophils 0.1 10^3/ul (0-0.6); ABS Monocytes 0.9 10^3/ul (0-0.8); Eosinophil % 0.5 %; Hematocrit 47 % (42-52); Hemoglobin 16.6 g/dL (14.0-18.0); Lymphocyte % 8.5 %; Mean Corpuscular HGB Conc 36 g/dL (31-36); Mean Corpuscular Hemoglobin 34 pg (27-31); Mean Corpuscular Volume 94 fL (80-94); Mean Platelet Volume 8.2 fL (7.4-10.4); Platelet Count 182 10^3/uL (150-450); Red Blood Count 4.96 10^6 /uL (4.18-5.48); Red Cell Distribution Width 14 % (10-15)
[2019-08-27 02:12] LABS: INR 1.05 (0.82-1.09)
[2019-08-27 02:23] LABS: ALT 22 U/L (7-52); AST 13 U/L (13-39); Albumin 4.2 g/dL (3.2-5.2); Albumin/Globulin Ratio 1.7 (1-3); Alkaline Phosphatase 53 U/L (34-104); Anion Gap 6 mmol/L (2-11); BUN/Creatinine Ratio 13.5 (8-20); Blood Urea Nitrogen 12 mg/dL (6-24); CO2 Carbon Dioxide 28 mmol/L (22-32); Calcium 9.4 mg/dL (8.6-10.3); Chloride 100 mmol/L (101-111); EGFR African American 110.4 (>60); EGFR Non-African American 91.2 (>60); Globulin 2.5 g/dL (2-4); Glucose 124 mg/dL (70-100); Potassium 4.2 mmol/L (3.5-5.0); Sodium 134 mmol/L (135-145); Total Protein 6.7 g/dL (6.4-8.9)
[2019-08-27] MEDS ORDERED: Iohexol 300* (CONTRAST) 10 ML SDV IV ONE (02:35)
[2019-08-27 04:39] LABS: Urine Appearance Cloudy; Urine Bilirubin Negative (Negative); Urine Blood Negative (Negative); Urine Color Yellow; Urine Glucose Negative (Negative); Urine Ketones Negative (Negative); Urine Nitrite Negative (Negative); Urine Protein Negative (Negative); Urine Urobilinogen Negative (Negative)
[2019-08-27 06:58] VITALS: BP 150/83
== END 2019-08-27 07:00 | disposition home or self-care (01) ==
LOC: ED 01:04
DX: R10.31 Right lower quadrant pain (principal); R19.7 Diarrhea, unspecified; F17.210 Nicotine dependence, cigarettes, uncomplicated; Z79.899 Other long term (current) drug therapy
CPT/HCPCS: 36415; 74177; 80053; 81003; 83605; 83690; 85025; 85610; 86140; 96361; 96374; 96375; 96376; 99284; J2405; J3010; Q9967

== ENCOUNTER 2019-08-29 08:43 | Inpatient (IN) | payer OTHER ==
--- NOTE | 2019-08-29 09:10 | ED ---
Abdominal Pain/Male - HPI Summary HPI Summary: This patient is a 49 year old male presenting to [facility] with a chief complaint of Right sided abdominal tenderness since 4 days ago. He states he has seen here 2 days ago with diffuse tenderness and severe pain. He states it is only on his right side now and the pain is slightly better however he is unable to move, get out of bed, or have a bowel movement. He states he has not had a bowel movement in the last 3 days even though he states he normally has 3 a day. He states when he coughs he has a shooting pain down to his testicular area. He states he never had surgery in his abdomen. He denies Hx of hernia. He rates his pain 6/10 in severity. Pt denies any fever, chills, erythema of eyes, sore throat, CP, SOB, cough, N/V, dysuria, hematuria, myalgia, edema, rash, or dizziness - History of Current Complaint Chief Complaint: EDAbdPain Stated Complaint: ABD PAIN Time Seen by Provider: 08/29/19 08:52 Hx Obtained From: Patient Onset/Duration: Lasting Days Pain Intensity: 6 Pain Scale Used: 0-10 Numeric Location: Discrete At: RUQ, Discrete At: RLQ Radiates to: Inguinal - Allergies/Home Medications Allergies/Adverse Reactions: Allergies Allergy/AdvReac Type Severity Reaction Status Date / Time No Known Allergies Allergy Verified 08/29/19 08:47 PMH/Surg Hx/FS Hx/Imm Hx Endocrine/Hematology History: Denies: Hx Diabetes, Hx Thyroid Disease Cardiovascular History: Denies: Hx Hypertension Respiratory History: Denies: Hx Asthma, Hx Chronic Obstructive Pulmonary Disease (COPD) GI History: Denies: Hx Ulcer History: Denies: Hx Renal Disease Musculoskeletal History: Reports: Other Musculoskeletal History - carpal tunnel - Surgical History Surgery Procedure, Year, and Place: none - Immunization History Date of Tetanus Vaccine: last 10 yrs Infectious Disease History: No Infectious Disease History: Denies: Hx Hepatitis, Hx Human Immunodeficiency Virus (HIV), History Other Infectious Disease, Traveled Outside the [place] in Last 30 Days - Family History Known Family History: Positive: Cardiac Disease, Hypertension, Other - alcoholism, maternal: anuersym (), Non-Contributory Negative: Diabetes - Social History Alcohol Use: Daily Alcohol Amount: 1-2 beers daily Substance Use Type: Reports: None Hx Tobacco Use: Yes Smoking Status (MU): Heavy Every Day Tobacco Smoker Type: Cigarettes Amount Used/How Often: smoked cigarettes since he is 17 Length of Time of Smoking/Using Tobacco: 1 PPD Have You Smoked in the Last Year: Yes Review of Systems Negative: Fever, Chills Negative: Erythema Negative: Sore Throat Negative: Chest Pain Negative: Shortness Of Breath, Cough Positive: Abdominal Pain, Other - Constipation. Negative: Vomiting, Nausea Negative: dysuria, hematuria Negative: Myalgia, Edema Negative: Rash Neurological: Other - Neg: Dizziness All Other Systems Reviewed And Are Negative: No Physical Exam - Summary Physical Exam Summary: Constitutional: Well-developed, Well-nourished, Alert. (-) Distressed Skin: Warm, Dry HENT: Normocephalic; Atraumatic Eyes: Conjunctiva normal Neck: Musculoskeletal ROM normal neck. (-) JVD, (-) Stridor, (-) Tracheal deviation Cardio: Rhythm regular, rate normal, Heart sounds normal; Intact distal pulses; The pedal pulses are 2+ and symmetric. Radial pulses are 2+ and symmetric. (-) Murmur Pulmonary/Chest wall: Effort normal. (-) Respiratory distress, (-) Wheezes, (-) Rales Abd: Soft, (+) Rebound tenderness, (+) guarding. (+) RLQ and RUQ tenderness. Musculoskeletal: (-) Edema Lymph: (-) Cervical adenopathy Neuro: Alert, Oriented x3 Psych: Mood and affect Normal GIGU: No inguinal hernia, no testicular tenderness. Triage Information Reviewed: Yes Vital Signs On Initial Exam: Initial Vitals Temp Pulse Resp BP Pulse Ox 98 F 92 18 129/76 97 08/29/19 08:44 08/29/19 08:44 08/29/19 08:44 08/29/19 08:44 08/29/19 08:44 Vital Signs Reviewed: Yes Procedures - Sedation Patient Received Moderate/Deep Sedation with Procedure: No Diagnostics - Vital Signs Vital Signs Temp Pulse Resp BP Pulse Ox 08/29/19 08:53 91 137/79 96 08/29/19 08:44 98 F 92 18 129/76 97 - Laboratory Result Diagrams: 08/29/19 09:06 08/29/19 09:06 Lab Statement: Any lab studies that have been ordered have been reviewed, and results considered in the medical decision making process. - CT Abd/Pel CT Interpretation Completed By: Radiologist Summary of CT Findings: 1. There is inflammatory change of the omental fat along the transverse colon in the right upper quadrant with torsion of the omental vessels suggestive of omental torsion. 2. There is a small amount of free fluid along the right paracolic gutter. 3. Normal appendix. 4. Fatty infiltration of the liver. ED Provider has reviewed this report. Re-Evaluation - Re-Evaluation First Eval Re-Evaluation Time: 12:37 Change: Improved Comment: Feeling better with medication. Abdominal Pain Male Course/Dx - Course Course Of Treatment: This patient is a 49 year old male presenting to [facility] with a chief complaint of Right sided abdominal tenderness since 4 days ago. Reviewed the ED record and ED Imaging from 08/27/19. Physical exam reveals rebound and guarding tenderness of the RUQ and RLQ. Labs were unremarkable except MCH 33 H, Absolute Neuts 8.3 H, Glucose 125 H, AST 12 L, CRP 149.31 H, Lipase < 10 L, Ur specific gravity 1.008 L, Urine blood 1+ A. CT Abd/Pel with contrast reveals: 1. There is inflammatory change of the omental fat along the transverse colon in the right upper quadrant with torsion of the omental vessels suggestive of omental torsion. 2. There is a small amount of free fluid along the right paracolic gutter. 3. Normal appendix. 4. Fatty infiltration of the liver. Patient was administed Morphine, Dilaudid, and Zofran for pain and nausea. Dr. Meraz evaluated the patient is 1:45 PM, he will be admitting the patient, with stated plan for operating room later today. Patient had a large meal this morning.This plan was discussed with the patient and he was agreeable. - Diagnoses Provider Diagnoses: Omental torsion - Critical Care Time Critical Care Time: 75-104 min Discharge ED - Sign-Out/Discharge Documenting (check all that apply): Patient Departure - Admission - Discharge Plan Condition: Stable Disposition: ADMITTED TO [facility] - Billing Disposition and Condition Condition: STABLE Disposition: Admitted to [facility] - Attestation Statements Document Initiated by Scribe: Yes Documenting Scribe: Bandar Spencer Provider For Whom Scribe is Documenting (Include Credential): Nato Yan MD Scribe Attestation: I, Bandar Spencer, scribed for Nato Yan MD on 09/02/19 at 1057. Scribe Documentation Reviewed: Yes Provider Attestation: The documentation as recorded by the scribe, Bandar Spencer accurately reflects the service I personally performed and the decisions made by me, Nato Yan MD Status of Scribe Document: Viewed
[2019-08-29 09:14] LABS: ABS Basophils 0.1 10^3/ul (0-0.2); ABS Eosinophils 0.1 10^3/ul (0-0.6); ABS Lymphocytes 1.1 10^3/ul (1.0-4.8); ABS Monocytes 0.8 10^3/ul (0-0.8); ABS Neutrophils 8.3 10^3/ul (1.5-7.7); Eosinophil % 0.7 %; Hematocrit 46 % (42-52); Lymphocyte % 10.6 %; Mean Corpuscular HGB Conc 35 g/dL (31-36); Mean Corpuscular Hemoglobin 33 pg (27-31); Mean Corpuscular Volume 94 fL (80-94); Mean Platelet Volume 7.8 fL (7.4-10.4); Platelet Count 201 10^3/uL (150-450); Red Blood Count 4.82 10^6 /uL (4.18-5.48); Red Cell Distribution Width 13 % (10-15); White Blood Count 10.4 10^3/uL (3.5-10.8)
[2019-08-29] MEDS ORDERED: NS 0.9% 1000 ML** 2,000 ML IV ONE (09:22)
[2019-08-29] MEDS ORDERED: Ondansetron INJ* 2 MG/ML VIAL IV ONE ×2 (09:22→15:19)
[2019-08-29] MEDS ORDERED: Morphine 4 MG/ML VIAL (1 ml) 4 MG/ML VIAL IV ONE (09:22)
[2019-08-29 09:32] LABS: ALT 18 U/L (7-52); AST 12 U/L (13-39); Albumin/Globulin Ratio 1.4 (1-3); Alkaline Phosphatase 55 U/L (34-104); Anion Gap 7 mmol/L (2-11); BUN/Creatinine Ratio 12.8 (8-20); Blood Urea Nitrogen 12 mg/dL (6-24); C Reactive Protein 149.31 mg/L (<8.01); CO2 Carbon Dioxide 26 mmol/L (22-32); Calcium 9.2 mg/dL (8.6-10.3); Chloride 103 mmol/L (101-111); EGFR African American 103.6 (>60); EGFR Non-African American 85.7 (>60); Globulin 2.9 g/dL (2-4); Glucose 125 mg/dL (70-100); Potassium 3.6 mmol/L (3.5-5.0); Sodium 136 mmol/L (135-145); Total Protein 6.9 g/dL (6.4-8.9)
[2019-08-29 10:41] LABS: Urine Appearance Clear; Urine Bilirubin Negative (Negative); Urine Blood 1+ (Negative); Urine Color Yellow; Urine Glucose Negative (Negative); Urine Ketones Negative (Negative); Urine Nitrite Negative (Negative); Urine Protein Negative (Negative); Urine Specific Gravity 1.008 (1.010-1.030); Urine Urobilinogen Negative (Negative)
[2019-08-29 10:45] LABS: Urine Bacteria Absent (Absent); Urine Red Blood Cell Trace(0-2/hpf) (Absent); Urine White Blood Cell Trace(0-5/hpf) (Absent)
[2019-08-29] MEDS ORDERED: HYDROmorphone INJ* 0.5 MG/0.5 ML SYRINGE IV ONE (11:16)
[2019-08-29] MEDS ORDERED: Iohexol 300* (CONTRAST) 10 ML SDV IV ONE (11:20)
[2019-08-29] MEDS ORDERED: Nicotine PATCH 14 MG/24 HR* PATCH TRANSDERM ONE (13:40)
[2019-08-29] MEDS ORDERED: HYDROmorphone INJ* 0.5 MG/0.5 ML SYRINGE IV SLOW PU ONE (14:04)
[2019-08-29] MEDS ORDERED: Dexamethasone IV* 4 MG/ML 1 ML (4 MG) IV SLOW PU ONE (15:19)
[2019-08-29] MEDS ORDERED: Famotidine IV* 10 MG/ML 2 ML (20 mg) IV ONE (15:19)
[2019-08-29] MEDS ORDERED: Buffered Lidocaine 1% SYRIN* 1 ML/SYRINGE INTRADERM ONE (15:19)
[2019-08-29] MEDS ORDERED: HYDROmorphone INJ1* 1 MG/ML SYRINGE IV PRN (15:21)
[2019-08-29] MEDS ORDERED: fentaNYL* 50 MCG/ML 2 ML VIAL (100 MCG VIAL) IV PRN ×2 (15:21→18:42)
[2019-08-29] MEDS ORDERED: Naloxone* 0.4 MG/ML 1 ML VIAL IV PRN ×2 (15:21→18:41)
[2019-08-29] MEDS ORDERED: PROCHLORPERAZINE INJ 5 MG/ML 2 ML VIAL IV PRN ×2 (15:21→18:39)
[2019-08-29] MEDS ORDERED: DiMENhydriNATE IV* 50 MG/ML VIAL IV PUSH PRN ×2 (15:21→18:39)
--- NOTE | 2019-08-29 15:39 | HP ---
DATE OF ADMISSION: 08/29/2019. HISTORY OF PRESENT ILLNESS: I was contacted by the emergency room staff to evaluate Mr. Angel, a 49-year-old gentleman who does not seek out medical care, who presented to the emergency room a secon d time in three days with severe abdominal pain. The patient describes onset of pain about a week ag o. It has only worsened. It is complicated with constipation and he denies any nausea or vomiting. He continues to have an appetite. He is passing flatus. Pain was mostly in the left and right upper abdominal areas, but now has focused on the right upper q uadrant. Work-up on 08/27/2019 consisted of a CAT scan of the abdomen and pelvis. This report was reviewed an d showed a normal appendix. Gallbladder ultrasound was done at that same time and this report was re viewed and showed hepatic steatosis, but no evidence of cholelithiasis. The patient had a mildly ana vated white blood cell count of 12 at that time and elevated CRP of 25. The patient presented today and now CRP is up to 149. The CT scan from today was reviewed by me, lexi bauman as well as the report, and it is consistent with concern for twist in the omentum. The patient h as never had abdominal surgeries in the past. PAST MEDICAL HISTORY: None. PAST SURGICAL HISTORY: None. MEDICATIONS: None. ALLERGIES: No known drug allergies. FAMILY HISTORY: Noncontributory. 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 He does not have a [facility] doctor. He denies any hospitalizations other than for traumatic issues. REVIEW OF SYSTEMS: No fevers or chills. No shortness of breath or chest pain. No nausea or vomitin g. No decreased appetite. No significant weight loss or weight gain. Abdominal pain as described. The patient never had an EGD, never had a colonoscopy. Constipation this past week whereby he state s he usually has normal bowel movements. No dysuria. Good exercise tolerance. A smoker. No bleed ing or clotting disorders. PHYSICAL EXAMINATION GENERAL: He is alert and oriented times three, in no apparent distress. VITAL SIGNS: In the emergency room, he is afebrile at 98, blood pressure 120/87, heart rate 75. HEENT: Normocephalic, atraumatic. Sclerae anicteric. Mucus membranes are dry. LUNGS: Clear to auscultation bilaterally. HEART: Exam not performed. ABDOMEN: Soft, minimally distended, tender at the right upper quadrant with tenderness to percussion . Positive voluntary guarding. No hernias. EXTREMITIES: Within normal limits. RECTAL: Exam not performed. IMPRESSION: Acute abdomen of unclear etiology, possibly consistent with Radiology's report of torsi on of the omentum. The patient has a climbing CRP and I am concerned for an intra-abdominal infectio n given his abdominal exam. PLAN/RECOMMENDATIONS: My recommendation is for exploratory laparotomy. I outlined the details of th e procedure, going over the risks, benefits, and alternatives. I spoke of the possible complications , including but not limited to bleeding, infection, abscess formation, need for bowel resection, poss ible need for ostomy, prolonged hospitalization, hernia formation. The patient's questions were answ ered. We will take him to the operating room for exploratory laparotomy, possible bowel resection ur gently. He will remain NPO, on IV fluids. Will give antibiotics at the time of surgery. A Caruso ca theter will be placed at the time of surgery as well. [id number]/[facility] #: [id number]
[2019-08-29] MEDS ORDERED: Lactated Ringers 1000 ML Bag* 1,000 ML IV SCH ×2 (16:00→17:00)
[2019-08-29] MEDS ORDERED: fentaNYL* 50 MCG/ML 5 ML VIAL (250 MCG VIAL) ONE (16:33)
[2019-08-29] MEDS ORDERED: KETAMINE HCL* 50 MG/ML 10 ML VIAL ONE (16:34)
[2019-08-29] MEDS ORDERED: Midazolam* 1 MG/ML 5 ML VIAL (5 MG) ONE ×2 (16:34→17:52)
[2019-08-29] MEDS ORDERED: Famotidine IV* 10 MG/ML 2 ML (20 mg) ONE (16:50)
[2019-08-29] MEDS ORDERED: Dexamethasone IV* 4 MG/ML 1 ML (4 MG) ONE ×2 (16:50→18:36)
[2019-08-29] MEDS ORDERED: Ondansetron INJ* 2 MG/ML VIAL ONE ×2 (16:50→18:36)
[2019-08-29] MEDS ORDERED: ceFAZolin 2 GM PREMIX in ORs 2 GM/50 ML BAG ONE (17:21)
[2019-08-29] MEDS ORDERED: Bupivacaine 0.5%* 50 ML MDV VIAL ONE (18:04)
[2019-08-29] MEDS ORDERED: Bupivacaine 0.25% EPI 200,000* 30 ML SDV ONE (18:04)
[2019-08-29] MEDS ORDERED: DiMENhydriNATE IV* 50 MG/ML VIAL ONE (18:36)
[2019-08-29] MEDS ORDERED: Rocuronium* 10 MG/ML VIAL ONE (18:36)
[2019-08-29] MEDS ORDERED: Propofol* 10 MG/ML 20 ML BTL ONE (18:36)
[2019-08-29] MEDS ORDERED: Succinylcholine* 20 MG/ML 10 ML VIAL ONE (18:36)
[2019-08-29] MEDS ORDERED: Ketorolac INJ* 30 MG/ML 1 ML VIAL ONE (18:36)
[2019-08-29] MEDS ORDERED: fentaNYL* 50 MCG/ML 2 ML VIAL (100 MCG VIAL) ONE (18:53)
[2019-08-29] MEDS ORDERED: EPHEDrine (Pressors)* 50 MG/ML VIAL ONE (19:22)
[2019-08-29] MEDS ORDERED: Glycopyrrolate IV* 0.2 MG/ML 1 ML VIAL ONE (19:22)
[2019-08-29] MEDS ORDERED: Neostigmine Methylsulfate* 1 MG/ML 10 ML VIAL (1 mg/ml) ONE (19:22)
--- NOTE | 2019-08-29 19:41 | BRIEFOPN ---
Brief Operative/Procedure Note - Operation Details Pre-Op Diagnosis: Omental Torsion Post-Op Diagnosis: Omental Torsion Procedures: Exploratory Laparotomy and excision of necrotic omentum Surgeon(s)/Proceduralists: Dr. Meraz. Assist: VERONICA Woody Anesthesia: GETA Estimated Blood Loss: <50cc Findings: As above Specimen(s)/Culture(s) Description: Infarcted omentum Complications: None
[2019-08-29] MEDS: HYDROmorphone INJ1* 1 MG/ML SYRINGE IV PRN ×5 (20:18→21:15)
[2019-08-29] MEDS ORDERED: oxyCODONE/Acetamin 5/325 MG* TAB ONE (21:07)
[2019-08-29] MEDS: oxyCODONE/Acetamin 5/325 MG* TAB PO PRN (21:10)
[2019-08-29] MEDS ORDERED: Morphine INJ* 4 MG/ML 1 ML SYRINGE (NEW SYRINGE VERSION) IV PRN (21:23)
[2019-08-29] MEDS: NS 0.9% 1000 ML** 1,000 ML IV SCH (22:18)
[2019-08-29] MEDS: Morphine INJ* 2 MG/ML 1 ML SYRINGE (TWO MG - NEW SYRINGE VERSION) IV PRN (22:51)
[2019-08-30] MEDS: oxyCODONE/Acetamin 5/325 MG* TAB PO PRN ×2 (01:30→04:39)
--- NOTE | 2019-08-30 03:24 | OP ---
CC: [facility] OPERATIVE REPORT: DATE OF OPERATION: 08/29/19 DATE OF : 72 SURGEON: Sherwin Meraz MD APPLIANCE COUNSELOR: VERONICA Aden ANESTHESIOLOGIST: Dr. Scales. ANESTHESIA: General anesthesia. PRE-OP DIAGNOSIS: Omental torsion, acute abdomen. POST-OP DIAGNOSIS: Omental torsion. OPERATIVE PROCEDURE: Exploratory laparotomy and excision of necrotic omentum. ESTIMATED BLOOD LOSS: Minimal blood loss, approximately less than 50 cc. IV FLUIDS: Crystalloid. Please see anesthesia report for details. SPECIMEN: Infarcted omentum. DESCRIPTION OF PROCEDURE: The patient was taken to the operating room and placed on the operating ta ble in supine position. Preoperative antibiotics were given. Sequential devices were placed on bilat eral lower extremities. General anesthesia was induced. Caruso catheter was inserted. The patient's abdomen was clipped of hair and prepped and draped in the standard surgical fashion. Time-out was p erformed. A midline incision was made. This was deepened down to the anterior fascia which was incised. Entry into the abdominal cavity was made just above the umbilicus. We extended our incision inferior and s uperior to the umbilicus and entered into the abdomen and noted some scant fluid. The falciform liga ment was isolated and ligated. The omentum was withdrawn through this incision and noted to be adher ed to the anterior abdominal wall at the right upper quadrant. Blunt dissection was carried out to f ree up a torsed and necrotic portion of omentum. This was brought into our incision site and freed u p from the adjacent intact omentum with just blunt dissection and some cautery until we got to the st alk at the transverse colon where it had twisted on itself few times. These were untwisted, and with sharp dissection, it was taken off of the transverse colon without injury. This was passed off as s pecimen. Review of the abdomen showed normal appearing gallbladder and liver. NG tube was noted in the stomac h, which showed no evidence of injury. Additional free fluid was in the pelvis and this was evacuate d. The sigmoid colon appeared intact as did most of the distal small bowel which was collapsed. Next, we irrigated the abdomen, suctioned out this fluid, and reapproximated the midline incision was #1 loop PDS suture starting inferiorly and superiorly and tying them in the middle. We irrigated th e wound and then closed the incision with . The patient tolerated the procedure well and was t ransferred to the PACU in stable condition. [id number]/[facility] #: [id number]
[2019-08-30] MEDS ORDERED: Heparin VIAL(*) 5000 UNITS/ML VIAL (FIVE THOUSAND) SUBCUT SCH (06:00)
[2019-08-30] MEDS: NS 0.9% 1000 ML** 1,000 ML IV SCH (07:00)
[2019-08-30 07:59] VITALS: BP 122/66
[2019-08-30] MEDS: Morphine INJ* 2 MG/ML 1 ML SYRINGE (TWO MG - NEW SYRINGE VERSION) IV PRN (08:00)
[2019-08-30] MEDS ORDERED: oxyCODONE/Acetamin 5/325 MG* TAB PO PRN (09:40)
--- NOTE | 2019-08-30 16:02 | DS ---
CC: [facility]; Primary Care Doctor DISCHARGE SUMMARY: DATE OF ADMISSION: DATE OF DISCHARGE: 08/30/19 HOSPITAL COURSE: Mr. Angel is a 49-year-old gentleman who was admitted to my service yesterday wi th a diagnosis of acute abdomen. He went to the operating room for exploratory laparotomy. He was f ound to have a necrotic omentum secondary to torsion. This was excised and the patient was transferr ed to PACU in stable condition and off to the short stay surgical unit, was restarted on p.o. diet, n o antibiotics were given other than preoperatively. Postoperative day 1, the patient was doing well, ambulating, passing gas but without bowel movement. Pain was controlled with oral narcotics and the patient was ready for discharge. PHYSICAL EXAM PERFORMED ON THE DAY DISCHARGE: He is afebrile. Vital signs stable. Alert and oriente d x3, in no apparent distress. Lungs: Clear. Abdomen: Soft and nondistended and mildly tender nava ng the incision. Dressing intact with scant drainage, but no erythema in the surrounding tissues. E xtremities within normal limits. IMPRESSION: Status post exploratory laparotomy, omental resection, stable. PLAN: Discharge home. The patient will follow up in my office next week. He understands I will be away. His questions were answered and he understands to contact our office if he should have fever o r worsening pain between now and his visit. I recommend he stay off of lifting for 3 weeks over 30 p ounds. He understands this. He was given a prescription for Percocet. The patient is discharged ho ms in stable condition. [id number]/[facility] #: [id number]
== END 2019-08-30 12:20 | disposition home or self-care (01) | DRG 229 ==
LOC: ED 08:43 → AA 14:57 → ED 16:15 → SSU 22:00
PROVIDERS: ADMIT Surgery; ATTEND Surgery
PROC: 0DBU0ZZ Excision of Omentum, Open Approach (ICD-10-PCS; principal; 2019-08-29 17:30)
DX: K56.2 Volvulus (principal); K55.049 Acute infarction of large intestine, extent unspecified; K59.00 Constipation, unspecified; F17.210 Nicotine dependence, cigarettes, uncomplicated
CPT/HCPCS: 36415; 74177; 80053; 81003; 81015; 83605; 83690; 85025; 86140; 87086; 88305; 96374; 96375; 99284; A9270-GY; J0330; J0690; J1100; J1170; J1240; J1644; J1885; J2250; J2270; J2405; J2704; J2710; J3010; J3490; Q9967

== ENCOUNTER 2021-07-20 06:09 | Observation (INO) ==
[~2021-07-20 06:09] MED LIST: Buffered Lidocaine 1% SYRIN 1 ml INTRADERM ONE; Lactated Ringers 1000 ml BAG 1,000 ML IV SCH
[2021-07-20] MEDS ORDERED: ceFAZolin 2 GM PREMIX 2 GM/50 ML BAG ONE (06:18)
[2021-07-20] MEDS ORDERED: Ondansetron 4 mg VIAL 2 MG/ML 2 ml VIAL ONE (07:03)
[2021-07-20] MEDS ORDERED: Midazolam 2 mg/2 ml VIAL 1 mg/ml 2 ml VIAL (2 mg) ONE (07:03)
[2021-07-20] MEDS ORDERED: Propofol 10 MG/ML 20 ML BTL ONE (07:03)
[2021-07-20] MEDS ORDERED: Dexamethasone IV 4 MG/ML VIAL 1 ml VIAL ONE (07:03)
[2021-07-20] MEDS ORDERED: Lidocaine 2% PF 5 ML VIAL ONE (07:03)
[2021-07-20] MEDS ORDERED: fentaNYL 250 mcg/5 ml 50 MCG/ML 5 ml VIAL (250 MCG) ONE (07:03)
[2021-07-20] MEDS ORDERED: Rocuronium 50 mg VIAL 10 mg/ml 5 ml VIAL (50 mg) ONE ×3 (07:16→09:50)
[2021-07-20] MEDS ORDERED: Lidocaine 1% w EPI 1:100,000 MDV 20 ML VIAL ONE (07:20)
[2021-07-20] MEDS ORDERED: Bupivacaine 0.5% SDV PF 30ML VIAL ONE (07:21)
[2021-07-20] MEDS ORDERED: DiMENhydriNATE IV 50 mg/ml 1 ml VIAL IV PUSH PRN (08:30)
[2021-07-20] MEDS ORDERED: Acetaminophen IV 1 GM/100ML 100 ML IV PRN (08:30)
[2021-07-20] MEDS ORDERED: Ondansetron 4 mg VIAL 2 MG/ML 2 ml VIAL IV PRN ×2 (08:30→12:16)
[2021-07-20] MEDS ORDERED: Naloxone 0.4 mg VIAL 0.4 mg/ml 1 ml VIAL IV PRN (08:30)
[2021-07-20] MEDS ORDERED: fentaNYL 100 mcg/2 ml 50 MCG/ML VIAL IV PRN (08:30)
[2021-07-20] MEDS ORDERED: diPHENhydraMINE IV 50 MG/ML 1 ml VIAL (BENADRYL) IV PRN (08:30)
[2021-07-20] MEDS ORDERED: Prochlorperazine 5 mg/ml 2 ml VIAL (10 mg) IV PRN (08:30)
[2021-07-20] MEDS ORDERED: Phenylephrine 40 mcg/mL 10mL (400mcg) SYRINGE ONE (08:54)
[2021-07-20] MEDS ORDERED: Glycopyrrolate IV 0.2 MG/ML 1 ML VIAL ONE (09:01)
[2021-07-20] MEDS ORDERED: Acetaminophen IV 1 GM/100ML 100 ML IV ONE (11:40)
[2021-07-20] MEDS ORDERED: HYDROmorphone 0.5 MG/0.5 ML SYRINGE ONE ×2 (11:40→12:58)
[2021-07-20] MEDS ORDERED: ceFAZolin VIAL VIAL ONE (11:43)
[2021-07-20] MEDS ORDERED: Naloxone 0.4 mg VIAL 0.4 mg/ml 1 ml VIAL IV PUSH PRN (12:14)
[2021-07-20] MEDS ORDERED: Lactated Ringers 1000 ml BAG 1,000 ML IV SCH (13:00)
[2021-07-20] MEDS: HYDROmorphone 1 MG/1 ML SYRINGE IV PRN ×3 (13:00→13:20)
[2021-07-20] MEDS ORDERED: HYDROmorphone PCA 20 MG/20 ML PCA.SYRING PCA SCH (13:00)
[2021-07-20] MEDS ORDERED: HYDROmorphone 0.5 MG/0.5 ML SYRINGE IV PRN (14:40)
[2021-07-21] MEDS ORDERED: Heparin 5000 UNITS/ML 1 mL VIAL SUBCUT SCH (06:00)
[2021-07-21 07:39] VITALS: BP 116/72
== END 2021-07-21 10:10 | disposition home or self-care (01) ==
LOC: OR 06:09 → SSU 12:04 → INTOOBSV 12:04
PROVIDERS: ADMIT Surgery; ATTEND Surgery

== ENCOUNTER 2022-06-23 09:00 | Observation (INO) ==
[~2022-06-23 09:00] MED LIST changes: +HYDROcodone/ACETAMIN 5/325 mg TAB PO PRN; +Metoclopramide 5 MG/ML VIAL (10 mg) IV PRN; +Naloxone 0.4 mg VIAL 0.4 mg/ml 1 ml VIAL IV PRN; +Ondansetron 4 mg VIAL 2 MG/ML 2 ml VIAL IV PRN; +fentaNYL 100 mcg/2 ml 50 MCG/ML VIAL IV PRN; +oxyCODONE/Acetamin 5/325 mg TAB PO PRN
[2022-06-23] MEDS ORDERED: Rocuronium 50 mg VIAL 10 mg/ml 5 ml VIAL (50 mg) ONE (09:13)
[2022-06-23] MEDS ORDERED: fentaNYL 100 mcg/2 ml 50 MCG/ML VIAL ONE ×2 (09:13→12:49)
[2022-06-23] MEDS ORDERED: Midazolam 2 mg/2 ml VIAL 1 mg/ml 2 ml VIAL (2 mg) ONE (09:13)
[2022-06-23] MEDS ORDERED: Propofol 10 MG/ML 20 ML BTL ONE (09:13)
[2022-06-23] MEDS ORDERED: Lidocaine 2% PF 5 ML VIAL ONE (09:13)
[2022-06-23] MEDS ORDERED: ceFAZolin 2 GM PREMIX 2 GM/50 ML BAG ONE (09:32)
[2022-06-23] MEDS ORDERED: Lidocaine 1% w EPI 1:200,000 SDV 30 ML VIAL ONE (10:06)
[2022-06-23] MEDS ORDERED: Thrombin 5,000 UNITS 1 APPLIC KIT - topical use - TOPICAL ONE (10:06)
[2022-06-23] MEDS ORDERED: ceFAZolin VIAL VIAL ONE (10:06)
[2022-06-23] MEDS ORDERED: Gelfoam Sponge SIZE 100 SPONGE ONE (10:07)
[2022-06-23] MEDS ORDERED: Bacitracin OINTMENT TUBE ONE (10:07)
[2022-06-23] MEDS ORDERED: HYDROmorphone 0.5 MG/0.5 ML SYRINGE ONE (11:06)
[2022-06-23] MEDS ORDERED: Acetaminophen IV 1 GM/100ML 1,000 MG/100 ML BAG IV ONE (11:07)
[2022-06-23] MEDS ORDERED: Ondansetron 4 mg VIAL 2 MG/ML 2 ml VIAL ONE (11:09)
[2022-06-23] MEDS ORDERED: Dexamethasone IV 4 MG/ML VIAL 1 ml VIAL ONE (11:09)
[2022-06-23] MEDS ORDERED: Ondansetron 4 mg VIAL 2 MG/ML 2 ml VIAL IV PRN (12:36)
[2022-06-23] MEDS ORDERED: Magnesium Hydroxide LIQ 30 ML UDC PO PRN (12:36)
[2022-06-23] MEDS: fentaNYL 100 mcg/2 ml 50 MCG/ML VIAL IV PRN ×2 (12:51→12:53)
[2022-06-23] MEDS ORDERED: Lactated Ringers 1000 ml BAG 1,000 ML IV SCH (13:00)
[2022-06-23] MEDS: HYDROcodone/ACETAMIN 5/325 mg TAB PO PRN ×2 (14:57→22:42)
[2022-06-24] MEDS: HYDROcodone/ACETAMIN 5/325 mg TAB PO PRN ×2 (06:31→10:14)
[2022-06-24 07:27] VITALS: BP 138/78
== END 2022-06-24 10:30 | disposition home or self-care (01) ==
LOC: OR 09:00 → SSU 09:00
PROVIDERS: ADMIT Neurological Surgery; ATTEND Neurological Surgery